=== PATIENT | female | born 1995 | race African-American/Black ===

== ENCOUNTER 2016-06-14 19:41 | Emergency (ER) | payer OTHER ==
[2016-06-14 19:44] VITALS: RESP 16
--- NOTE | 2016-06-14 19:50 | EDPHY ---
H & P Smoking Status: Never smoked Time Seen by Provider: 06/14/16 19:47 HPI/ROS: CHIEF COMPLAINT: Vaginal bleeding HISTORY OF PRESENT ILLNESS: This patient is a 20 year old female who presents to the Emergency Department complaining of intermittent vaginal bleeding increasing in frequency and severity since Thursday. She also reports moderate left flank pain beginning last night that she believes is associated with the bleeding. Her pain is constant but is exacerbated with movement. She had irregular vaginal bleeding when in high school without any explanatory diagnosis , but prior episodes had never been associated with pain. No history of UTI or kidney stones. LNMP was 10 days prior to arrival. She is not sexually active; no chance of . REVIEW OF SYSTEMS: Constitutional: No fever, no chills Eyes: No visual changes ENT: No sore throat Respiratory: No cough, no shortness of breath Cardiac: No chest pain Gastrointestinal: No nausea, no vomiting, no abdominal pain Genitourinary: +left flank pain, +vaginal bleeding, no hematuria, no dysuria Musculoskeletal: No leg pain or swelling Skin: No rash Neurological: No headache, no numbness, no weakness Psychiatric: No depression (Mikala Jiménez) Past Medical/Surgical History: Denies. (Mikala Jiménez) Social History: Non-smoker. (Mikala Jiménez) Physical Exam: General Appearance: Alert, no distress Eyes: Pupils equal and round, no conjunctival pallor or injection ENT, Mouth: Mucous membranes moist Neck: Normal inspection Respiratory: Lungs are clear to auscultation Cardiovascular: Regular rate and rhythm Back: No back or CVA tenderness Gastrointestinal: Abdomen is soft, left adnexal tenderness Neurological: A&O, nonfocal, normal gait Skin: Warm and dry, no rash Extremities: Nontender, no pedal edema Psychiatric: Mood and affect normal (Mikala Jiménez) Constitutional: Initial Vital Signs Temperature (C) 36.8 C 06/14/16 19:43 Heart Rate 99 06/14/16 19:43 Respiratory Rate 16 06/14/16 19:43 Blood Pressure 130/86 H 06/14/16 19:43 O2 Sat (%) 98 06/14/16 19:43 O2 Delivery Mode Room Air Allergies/Adverse Reactions: No Known Allergies Allergy (Unverified 06/14/16 19:45) Home Medications: Medication Instructions Recorded NK [No Known Home Meds] 06/14/16 Medical Decision Making - Diagnostics Imaging: Imaging Impressions Abdomen/Pelvis Ultrasound 06/14/16 20:22 Impression: Normal kidneys. No hydronephrosis. Findings discussed with emergency department physician, Mikala Jiménez MD on June 14, 2016 at 2112 a.m. Pelvic/Renal Ultrasound 06/14/16 20:22 Impression: 1. Normal ovaries. No ovarian cyst, ovarian torsion, or adnexal mass. 2. Normal uterus. Findings discussed with Emergency Department physician, Dr. Krunal Ruth at 06/15/2016 0:06. ED Course/Re-evaluation: This normally healthy 20 year old female presents with left flank pain and intermittent vaginal bleeding over the past week. She is not sexually active. Her exam is significant for left adnexal tenderness. Will proceed with UA and ultrasound of the pelvis and left kidney. Labs obtained and are unremarkable. test is negative. UA is positive for blood but otherwise negative. (Mikala Jiménez) [id number]: I did follow up this patient's ultrasound, normal ovaries, no ovarian torsion or significant cyst. Unremarkable transabdominal ultrasound. Ultrasound of the abdomen for pelvic pain The results of the study are negative for anything acute. I discussed the results of this study with the radiologist Dr. Bunch . (Krunal Ruth) Differential Diagnosis: Differential diagnosis includes though it is not limited to ectopic , ovarian cyst, ovarian torsion, PID, UTI, appendicitis. (Mikala Jiménez) - Data Points Laboratory Results: Laboratory Results 06/14/16 20:05 06/14/16 06/14/16 06/14/16 20:05 19:47 19:47 WBC 7.67 10^3/uL 10^3/uL (3.80-9.50) RBC 4.66 10^6/uL 10^6/uL (4.18-5.33) Hgb 12.4 g/dL L g/dL (12.6-16.3) Hct 38.3 % % (38.0-47.0) MCV 82.2 fL fL (81.5-99.8) MCH 26.6 pg L pg (27.9-34.1) MCHC 32.4 g/dL g/dL (32.4-36.7) RDW 15.2 % % (11.5-15.2) Plt Count 275 10^3/uL 10^3/uL (150-400) MPV 10.5 fL fL (8.7-11.7) Neut % (Auto) 64.3 % % (39.3-74.2) Lymph % (Auto) 26.5 % % (15.0-45.0) [place] % (Auto) 6.5 % % (4.5-13.0) Eos % (Auto) 1.7 % % (0.6-7.6) Baso % (Auto) 0.7 % % (0.3-1.7) Nucleat RBC Rel Count 0.0 % % (0.0-0.2) Absolute Neuts (auto) 4.94 10^3/uL 10^3/uL (1.70-6.50) Absolute Lymphs (auto) 2.03 10^3/uL 10^3/uL (1.00-3.00) Absolute Monos (auto) 0.50 10^3/uL 10^3/uL (0.30-0.80) Absolute Eos (auto) 0.13 10^3/uL 10^3/uL (0.03-0.40) Absolute Basos (auto) 0.05 10^3/uL 10^3/uL (0.02-0.10) Absolute Nucleated RBC 0.00 10^3/uL 10^3/uL (0-0.01) Immature Gran % 0.3 % % (0.0-1.1) Immature Gran # 0.02 10^3/uL 10^3/uL (0.00-0.10) Urine Color YELLOW Urine Appearance CLEAR Urine pH 5.0 (5.0-7.5) Ur Specific [place] 1.023 (1.002-1.030) Urine Protein NEGATIVE (NEGATIVE) Urine Ketones NEGATIVE (NEGATIVE) Urine Blood 3+ H (NEGATIVE) Urine Nitrate NEGATIVE (NEGATIVE) Urine Bilirubin NEGATIVE (NEGATIVE) Urine Urobilinogen NEGATIVE EU EU (0.2-1.0) Ur Leukocyte Esterase NEGATIVE (NEGATIVE) Urine RBC 50-182 /hpf H /hpf (0-3) Urine WBC 1-3 /hpf /hpf (0-3) Ur Epithelial Cells TRACE /lpf /lpf (NONE-1+) Urine Mucus TRACE /lpf /lpf (NONE-1+) Urine Glucose NEGATIVE (NEGATIVE) Urine Test NEGATIVE Medications Given: Discontinued Medications Sodium Chloride (Ns) 1,000 mls @ 0 mls/hr IV ONCE ONE PRN Reason: Wide Open Stop: 06/14/16 21:14 Last Admin: 06/14/16 21:13 Dose: 1,000 mls Sodium Chloride (Ns) 1,000 mls @ 0 mls/hr IV ONCE ONE PRN Reason: Wide Open Stop: 06/14/16 22:39 Last Admin: 06/14/16 22:10 Dose: 1,000 mls Sodium Chloride (Ns) 1,000 mls @ 0 mls/hr IV ONCE ONE PRN Reason: Wide Open Stop: 06/14/16 22:41 Last Admin: 06/14/16 22:40 Dose: 1,000 mls Departure - Departure Disposition: Home, Routine, Self-Care Clinical Impression: Dysfunctional uterine bleeding Low back pain Qualifiers: Chronicity: acute Back pain laterality: left Sciatica presence: without sciatica Qualified Code(s): M54.5 - Low back pain Condition: Fair Instructions: Dysfunctional Uterine Bleeding (ED), Low Back Strain (ED) Additional Instructions: Ibuprofen 600 mg 3 times daily while the pain persists. Referrals: Reina Matias [Other] - 2-3 days, call for appt. Report Scribed for: Mikala Jiménez Report Scribed by: Nora Giraldo Date of Report: 06/14/16 Time of Report: 19:50 Physician Review and Approval Statement: 06/14/16 19:50 Portions of this note were transcribed by a medical doctor md/medical director. I personally performed a history, physical exam, medical decision making, and confirmed accuracy of information the transcribed note. (Mikala Jiménez)
[2016-06-14 20:10] LABS: % IMMATURE GRANULYOCYTES 0.3 % (0.0-1.1); ABSOLUTE IMMATURE GRANULOCYTES 0.02 10^3/uL (0.00-0.10); ADD DIFF? NO; ADD MORPH? NO; ADD SCAN? NO; ATYPICAL LYMPHOCYTE FLAG 10 (0-99); FRAGMENT RBC FLAG 0 (0-99); HEMATOCRIT 38.3 % (38.0-47.0); HEMOGLOBIN 12.4 g/dL (12.6-16.3); LEFT SHIFT FLG 0 (0-99); LIPEMIA HEMOLYSIS FLAG 80 (0-99); MEAN CELL HEMOGLOBIN 26.6 pg (27.9-34.1); MEAN CELL HEMOGLOBIN CONCENTR. 32.4 g/dL (32.4-36.7); MEAN CELL VOLUME 82.2 fL (81.5-99.8); MEAN PLATELET VOLUME 10.5 fL (8.7-11.7); PLATELET CLUMPS FLAG 10 (0-99); PLATELET COUNT 275 10^3/uL (150-400); RED BLOOD CELL COUNT 4.66 10^6/uL (4.18-5.33); RED CELL DISTRIBUTION WIDTH 15.2 % (11.5-15.2)
[2016-06-14 20:30] LABS: COLOR YELLOW; LEUKOCYTE ESTERASE,URINE NEGATIVE (NEGATIVE); NITRITE,URINE NEGATIVE (NEGATIVE)
[2016-06-14 20:44] LABS: MUCUS TRACE /lpf (NONE-1+); RBC,URINE 50-182 /hpf (0-3)
[2016-06-14] MEDS ORDERED: NS 1,000 ML IV ONE ×3 (21:13→22:40)
[2016-06-15 00:40] VITALS: BP 121/81; PULSE 96; TEMP 98.1; O2SAT 99
== END 2016-06-15 00:46 | disposition home or self-care (01) ==
DX: N93.8 Other specified abnormal uterine and vaginal bleeding (principal); M54.5 Low back pain

== ENCOUNTER 2017-05-04 17:48 | Emergency (ER) | payer OTHER ==
[2017-05-04 18:53] VITALS: BP 124/81; PULSE 101; RESP 16; TEMP 98.8; O2SAT 98
[2017-05-04] MEDS ORDERED: ACETAMINOPHEN 325 MG TAB PO ONE (19:59)
[2017-05-04] MEDS ORDERED: IBUPROFEN 600 MG TAB PO ONE (19:59)
[2017-05-04] MEDS ORDERED: AMOXICILLIN 250 MG PREPACK#4 BTL TAKEHOME ONE (20:55)
--- NOTE | 2017-05-04 20:59 | EDPHY ---
H & P Time Seen by Provider: 05/04/17 20:43 HPI/ROS: Chief complaint. Fever, ear pain HPI. 21-year-old female with several day history of fever, right ear pain, congestion, sore throat, right eye drainage and crusting. Using TheraFlu. She has sick contacts and roommates. No chest discomfort or shortness of breath though she does have some cough. Some abdominal cramping but no vomiting or diarrhea. Normally healthy. ROS Constitutional. Fever Eyes. No problem with vision but some drainage from the right eye ENT. Right ear pain, sore throat Cardiovascular. no chest pain Respiratory. no shortness of breath, no cough Abdominal. no abdominal pain, no nausea/vomiting, no diarrhea . no problems urinating MS. no calf pain/swelling, no neck/back pain, no joint pain Skin. no rash Lymph. no swollen glands Neuro. no headache, no dizziness, no difficulty walking or with speech Past Medical/Surgical History: Healthy Social History: Single, nonsmoker, no alcohol Smoking Status: Never smoked Physical Exam: General Appearance: Alert pleasant well-developed female mild distress vital signs are stable Eyes: Pupil equal round reactive there is injection to the conjunctiva. No obvious drainage. ENT, right tympanic membrane stiff in erythematous. Pharynx mildly injected specially on the right without exudate. Respiratory: There are no retractions, lungs are clear to auscultation. Cardiovascular: Regular rate and rhythm. Gastrointestinal: Abdomen is soft and nontender, no masses, bowel sounds normal. Neurological: Awake and alert, sensory and motor exams grossly normal. Skin: Warm and dry, no rashes. Musculoskeletal: Neck is supple nontender. Extremities symmetrical, full range of motion. Psychiatric: Patient is oriented X 3, there is no agitation. Constitutional: Initial Vital Signs Temperature (C) 37.1 C 05/04/17 18:52 Heart Rate 101 H 05/04/17 18:52 Respiratory Rate 16 05/04/17 18:52 Blood Pressure 124/81 H 05/04/17 18:52 O2 Sat (%) 98 05/04/17 18:52 O2 Delivery Mode Room Air Allergies/Adverse Reactions: No Known Allergies Allergy (Unverified 05/04/17 18:51) Home Medications: Medication Instructions Recorded Amoxicillin Trihydrate [Amoxil] 500 mg PO TID 7 Days cap 05/04/17 Theraflu Expressmax Cold Nt Lq 05/04/17 Medical Decision Making ED Course/Re-evaluation: Patient remained stable. This appears to be otitis media may well be viral infection. The patient and I discussed treatment plan including criteria for return importance of follow-up further evaluation. She expresses understanding and agreement Differential Diagnosis: Viral versus bacterial illness. Clinical otitis media. No evidence for pneumonia. - Data Points Medications Given: Discontinued Medications Acetaminophen (Tylenol) 650 mg PO EDNOW ONE Stop: 05/04/17 20:00 Last Admin: 05/04/17 20:04 Dose: 650 mg Ibuprofen (Motrin) 600 mg PO EDNOW ONE Stop: 05/04/17 20:00 Last Admin: 05/04/17 20:04 Dose: 600 mg Departure - Departure Disposition: Home, Routine, Self-Care Clinical Impression: Otitis media Qualifiers: Otitis media type: unspecified Chronicity: acute Qualified Code(s): H66.90 - Otitis media, unspecified, unspecified ear Condition: Good Instructions: Ear Infection (ED) Additional Instructions: Amoxicillin using 1 pill 3 times daily. Tylenol 1000 mg every 4-6 hours, ibuprofen 600 mg every 6 hr as needed for pain. Return for worsening symptoms. Recheck in 2-3 days if not improving Referrals: NONE *PRIMARY CARE P,. [Primary Care Provider] - As per Instructions Prescriptions: Amoxicillin Trihydrate [Amoxil] 500 mg PO TID 7 Days cap
== END 2017-05-04 21:12 | disposition home or self-care (01) ==
DX: H66.90 Otitis media, unspecified, unspecified ear (principal)